=== PATIENT | female | born 1970 ===

== ENCOUNTER → 2024-12-13 | Day surgery (SDC) | payer OTHER ==
[2024-12-11 11:26] VITALS: BMI 28.9
[~2024-12-13] MED LIST: LIDOCAINE 2% (PF) 20 MG/ML 5 ML VIAL ONE; PROPOFOL 10 MG/ML 20 ML VIAL IV ONE
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
[2024-12-13 09:40] VITALS: TEMP 97.8
[2024-12-13] MEDS: IV FLUID CONTINUATION 1,000 ML IV ONE (09:48)
[2024-12-13] MEDS: LACTATED RINGERS 1,000 ML IV SCH (09:48)
[2024-12-13 10:24] VITALS: RESP 16
[2024-12-13 10:41] VITALS: BP 133/86; PULSE 76
--- NOTE | 2024-12-13 11:14 | P.PCN ---
Date of Procedure: 12/13/24 Description of Procedure: PREOPERATIVE DIAGNOSIS: Gastrointestinal bleeding History of H. pylori gastritis POSTOPERATIVE DIAGNOSIS: Gastroesophageal reflux disease. Gastritis. Diaphragmatic hiatal hernia OPERATION: Esophagogastroduodenoscopy with cold forceps biopsies along esophagus, antrum and duodenum SURGEON: Lilliana Sandoval MD ANESTHESIA: MAC. INDICATIONS: The patient is a 54-year-old female who presents with gastrointestinal bleeding and reflux disease. Benefits and risks of the procedure were described. Informed consent was obtained. DESCRIPTION: The patient was brought into the endoscopy suite and laid in the left lateral decubitus position. An Olympus gastroscope was passed along the posterior oropharynx down to the distal esophagus where the squamocolumnar junction was encountered at 38 cm from the incisors. The stomach was entered and no bile reflux was found. Additional findings are listed below. Biopsies with cold forceps were obtained of the antrum. The first through third portion of the duodenum was examined. Retroflexion of the scope confirmed Hill grade 2 lower esophageal valve. The squamocolumnar junction demonstrated LA grade C erosive esophagitis. The stomach was desufflated. The patient tolerated the procedure well. FINDINGS: Squamocolumnar junction 38 cm from the incisors. Diaphragmatic hiatus at 39 cm. Hiatal hernia, 1 cm Hill grade 2 lower esophageal valve. LA grade C erosive esophagitis. Biopsies obtained. Biopsies obtained of the duodenum. Chronic gastritis with biopsies obtained. RECOMMENDATIONS: Upper endoscopy as needed. Plan - Discharge Summary Discharge Rx Participant: No New Discharge Prescriptions: New Omeprazole [PriLOSEC] 40 mg PO DAILY #90 cap Continue amLODIPine 10 mg PO DAILY Lidocaine 5% Patch [Lidoderm 5% Patch] 1 patch TOPICAL DIRECTED PRN PRN Reason: Pain Cyclobenzaprine [Flexeril] 10 mg PO TID PRN PRN Reason: Muscle Spasm busPIRone HCL 15 mg PO TID Clarithromycin [Biaxin] 500 mg PO Q12H Amoxicillin 500 mg PO Q12H Albuterol Sulfate [Ventolin HFA] 1 - 2 dose INHALATION DIRECTED PRN PRN Reason: Shortness Of Breath Pregabalin [Lyrica] 150 mg PO BID EPINEPHrine (Auto Inject) [Epipen] 0.3 mg IM ONCE PRN PRN Reason: Anaphylaxis oxyCODONE HCL/ACETAMINOPHEN [oxyCODONE HCL/ACETAMINOPHEN 7.5-325] 7.5 - 325 mg PO TID PRN PRN Reason: Pain diphenhydrAMINE HCL [Benadryl] 25 mg PO DIRECTED PRN PRN Reason: Allergy Symptoms Discharge Medication List Albuterol Sulfate [Ventolin HFA] 1 - 2 dose INHALATION DIRECTED PRN 12/11/24 [History] Amoxicillin 500 mg PO Q12H 12/11/24 [History] Clarithromycin [Biaxin] 500 mg PO Q12H 12/11/24 [History] Cyclobenzaprine [Flexeril] 10 mg PO TID PRN 12/11/24 [History] EPINEPHrine (Auto Inject) [Epipen] 0.3 mg IM ONCE PRN 12/11/24 [History] Lidocaine 5% Patch [Lidoderm 5% Patch] 1 patch TOPICAL DIRECTED PRN 12/11/24 [History] Pregabalin [Lyrica] 150 mg PO BID 12/11/24 [History] amLODIPine 10 mg PO DAILY 12/11/24 [History] busPIRone HCL 15 mg PO TID 12/11/24 [History] diphenhydrAMINE HCL [Benadryl] 25 mg PO DIRECTED PRN 12/11/24 [History] oxyCODONE HCL/ACETAMINOPHEN [oxyCODONE HCL/ACETAMINOPHEN 7.5-325] 7.5 - 325 mg PO TID PRN 12/11/24 [History] Omeprazole [PriLOSEC] 40 mg PO DAILY #90 cap 12/13/24 [Rx] Follow up Appointment(s)/Referral(s): Lilliana Sandoval MD [STAFF PHYSICIAN] - 01/02/25 4:00 pm Patient Instructions/Handouts: *Surgery [facility] - (Anesthesia) Discharge Instructions Outpatient Surgery, Hiatal Hernia (DC), Upper Endoscopy (DC) Discharge Disposition: HOME SELF-CARE
== END | disposition home or self-care (01) ==
LOC: ORWHC2ENDO 08:43
PROVIDERS: ATTEND Surgery Plastic and Reconstructive Surgery
DX: K29.50 Unspecified chronic gastritis without bleeding (principal); K21.01 Gastro-esophageal reflux disease with esophagitis, with bleeding; D72.820 Lymphocytosis (symptomatic); K44.9 Diaphragmatic hernia without obstruction or gangrene; J44.9 Chronic obstructive pulmonary disease, unspecified; I10 Essential (primary) hypertension; F17.210 Nicotine dependence, cigarettes, uncomplicated; Z86.19 Personal history of other infectious and parasitic diseases; Z87.19 Personal history of other diseases of the digestive system; Z83.3 Family history of diabetes mellitus; Z82.49 Family history of ischemic heart disease and other diseases of the circulatory system; Z90.710 Acquired absence of both cervix and uterus; Z88.5 Allergy status to narcotic agent; Z79.51 Long term (current) use of inhaled steroids; Z79.899 Other long term (current) drug therapy
CPT/HCPCS: 88305; 43239; J2704; J2003